=== PATIENT | male | born 1965 | race Caucasian/White ===

== ENCOUNTER 2017-06-19 13:10 | Inpatient (IN) | payer OTHER ==
[~2017-06-19] VITALS: Ht 188 cm; Wt 67.1 kg
[2017-06-19] MEDS ORDERED: IV NORMAL SALINE 1000 ML BAG IV ONE ×2 (13:30→14:45)
[2017-06-19 13:38] LABS: CARBON DIOXIDE 21 mmol/L (21-32); CHLORIDE 101 mmol/L (98-107); CREATININE 0.8 mg/dL (0.6-1.3); GLUCOSE 126 mg/dL (74-106); UREA NITROGEN, BLOOD 15 mg/dL (7-18)
[2017-06-19 13:40] LABS: POTASSIUM 2.8 mmol/L (3.5-5.1)
[2017-06-19 13:43] LABS: ACETAMINOPHEN 3.5 ug/mL (10-30); ALANINE AMINOTRANSFERASE 74 U/L (16-63); ALKALINE PHOSPHATASE 79 U/L (50-136); ASPARTATE AMINOTRANSFERASE 127 U/L (15-37); BILIRUBIN,DIRECT 0.1 mg/dL (0.0-0.2); BILIRUBIN,TOTAL 0.6 mg/dL (0.2-1.0)
[2017-06-19 13:46] LABS: BASOPHILS % (AUTO) 0.1 % (0.0-2.0); EOSINOPHILS % (AUTO) 0.1 % (0.0-7.0); HEMATOCRIT 39.7 % (36.7-47.1); HEMOGLOBIN 13.5 g/dL (12.5-16.3); LYMPHOCYTES # (AUTO) 1.3 K/uL (20.0-40.0); LYMPHOCYTES % (AUTO) 11.5 % (20.5-51.5); MEAN CORPUSCULAR HEMOGLOBIN 31.9 uug (23.8-33.4); MEAN CORPUSCULAR HGB CONC 34 g/dL (32.5-36.3); MEAN CORPUSCULAR VOLUME 93.6 fL (73.0-96.2); MONOCYTES # (AUTO) 0.8 K/uL (2.0-10.0); MONOCYTES % (AUTO) 6.7 % (0.0-11.0); NEUTROPHILS # (AUTO) 9.2 K/uL (1.8-8.9); NEUTROPHILS % (AUTO) 81.6 % (38.5-71.5); PLATELET COUNT (AUTO) 304 K/uL (152-348); RED BLOOD CELL COUNT(AUTO) 4.24 MIL/uL (4.06-5.63); WHITE BLOOD COUNT (AUTO) 11.3 K/uL (3.6-10.2)
[2017-06-19 13:47] LABS: *BILIRUBIN,URIN NEGATIVE (NEGATIVE); *BLOOD, URINE Trace-lysed (NEGATIVE); *CLARITY,URINE SLIGHTLY CLOUDY (CLEAR); *COLOR,URINE YELLOW (YELLOW); *KETONES,URINE NEGATIVE (NEGATIVE); *PROTEIN,URINE NEGATIVE (NEGATIVE); *UROBILINOGEN,URINE 0.2 E.U./dl (NORMAL); LEUKOCYTE ESTERASE ,URINE NEGATIVE (NEGATIVE); NITRITE, URINE NEGATIVE (NEGATIVE); UGLUCOSE NEGATIVE (NEGATIVE)
[2017-06-19 13:48] LABS: ETHANOL 802 MG/DL (0-0)
[2017-06-19] MEDS ORDERED: POTASSIUM CHLORIDE 100 ML ONE (13:51)
[2017-06-19] MEDS: POTASSIUM CHLORIDE 50 ML IV SCH ×2 (13:53→15:04)
[2017-06-19 13:57] LABS: BACTERIA,URINE NONE SEEN /HPF (NONE SEEN); RBC,URINE 0-3 /HPF (0-3); SQUAMOUS EPITHELIAL CELL,UR NONE SEEN /HPF (NONE SEEN); WBC,URINE 0-3 /HPF (0-3)
[2017-06-19 14:00] LABS: *AMPHETAMINE, URINE NEGATIVE (NEGATIVE); *BARBITURATE, URINE NEGATIVE (NEGATIVE); *CANNABINOID, URINE POSITIVE (NEGATIVE); *COCCAINE, URINE NEGATIVE (NEGATIVE); *OPIATE, URINE POSITIVE (NEGATIVE); *PHENCYCLIDINE SCREEN,URINE NEGATIVE (NEGATIVE)
[2017-06-19] MEDS ORDERED: THIAMINE HCL 200 MG/2 ML VIAL IM ONE (14:00)
[2017-06-19] MEDS ORDERED: THIAMINE HCL 200 MG/2 ML VIAL ONE (14:12)
--- NOTE | 2017-06-19 14:18 | NUR ---
BRUISE ON THE LEFT HIP NOTICED, ER MD AT BEDSIDE.
--- NOTE | 2017-06-19 15:05 | NUR ---
PT STARTING TO WAKE UP AND TALKING IN ONE WORDS, STILL DOES NOT REMEMBER HIS NAME. PT IS ASKING TO SMOKE.
--- NOTE | 2017-06-19 16:00 | NUR ---
PT STILL DOES NOT KNOW HIS NAME.
--- NOTE | 2017-06-19 16:05 | NUR ---
TRANSFERED PT TO CCU THOMAS STATUS IN STABLE CONDITION
--- NOTE | 2017-06-19 16:15 | NUR ---
Patient in From Emergency room awake confused restless. In CCU 4 as THOMAS overflow. Vitals as follow. HR of 114, RR 16, Saturation of 96%. sbp 96/31. patient situated in bed IV access of left hand G 20 infusing with normal saline. Gil catheter to gravity.
[2017-06-19 16:44] VITALS: BP 110/63
[2017-06-19] MEDS ORDERED: MAGNESIUM HYDROXIDE 30 ML LIQUID UDC PO PRN (17:00)
[2017-06-19] MEDS ORDERED: Z GUARD REMEDY PASTE 57 GM TUBE TOP PRN (17:00)
[2017-06-19] MEDS ORDERED: LORAZEPAM 2 MG/1 ML VIAL IV PRN ×2 (17:00→18:00)
[2017-06-19] MEDS ORDERED: ACETAMINOPHEN 325 MG TABLET PO PRN (17:00)
[2017-06-19] MEDS: IV NS 1000 ML 1,000 ML IV SCH ×2 (17:40→20:38)
--- NOTE | 2017-06-19 18:26 | NUR ---
AT this time patient more awake ate dinner and able to state his name Jayson Diez. stating his birthday is 1965. Patient also stating he has no allergies to either medications or food. Addendum: 06/19/17 at 1834 by DEIRDRE PARTIDA RN dATE OF 1965
[2017-06-19 20:00] VITALS: BP 103/55
--- NOTE | 2017-06-19 20:00 | NUR ---
RECEIVED PT. VERY DROWSY, AROUSABLE TO VERBAL STIMULI. ON RM AIR W/ O2 SAT OF 100%.IVF NS @ 100CC/HR ON L HAND. BP STABLE. AFEBRILE.C-SCOPE SR. NOT IN ANY DISTRESS.
--- NOTE | 2017-06-19 22:05 | NUR ---
HS CARE DONE. REPOSITIONED HIMSELF FOR COMFORTS.
--- NOTE | 2017-06-19 23:55 | NUR ---
MEDICATED W/ ATIVAN 1MG FOR SHAKING & AGITATION.
[2017-06-20] VITALS (18 sets, daily range): BP systolic 91–128; BP diastolic 48–70
[2017-06-20] MEDS: ONDANSETRON 4 MG/2 ML VIAL IV PRN (01:37)
--- NOTE | 2017-06-20 01:45 | NUR ---
CALLED DR RIVERA RE: INCREASE OF AGITATION & SHAKING W/ ORDER.
[2017-06-20] MEDS: LORAZEPAM 2 MG/1 ML VIAL IV PRN ×7 (02:01→16:48)
[2017-06-20] MEDS: IV NS 1000 ML 1,000 ML IV SCH ×2 (03:12→12:33)
[2017-06-20] MEDS: HYDROCODONE/APAP 5-325MG TABLET PO PRN ×3 (03:42→15:07)
[2017-06-20] MEDS ORDERED: LORAZEPAM 2 MG/1 ML VIAL IV ONE (04:00)
--- NOTE | 2017-06-20 04:00 | NUR ---
called dr rutherford for increased agitation & shaking w/ order, ativan 2mg given as ordered once.
[2017-06-20 05:07] LABS: BASOPHILS % (AUTO) 0.5 % (0.0-2.0); EOSINOPHILS % (AUTO) 0.5 % (0.0-7.0); HEMATOCRIT 34.8 % (36.7-47.1); LYMPHOCYTES # (AUTO) 1.7 K/uL (20.0-40.0); LYMPHOCYTES % (AUTO) 19.1 % (20.5-51.5); MEAN CORPUSCULAR HGB CONC 35 g/dL (32.5-36.3); MEAN CORPUSCULAR VOLUME 92.8 fL (73.0-96.2); MONOCYTES # (AUTO) 0.5 K/uL (2.0-10.0); MONOCYTES % (AUTO) 5.9 % (0.0-11.0); NEUTROPHILS # (AUTO) 6.7 K/uL (1.8-8.9); PLATELET COUNT (AUTO) 233 K/uL (152-348); RED BLOOD CELL COUNT(AUTO) 3.75 MIL/uL (4.06-5.63); WHITE BLOOD COUNT (AUTO) 9.1 K/uL (3.6-10.2)
[2017-06-20 05:27] LABS: CREATININE 0.8 mg/dL (0.6-1.3); MAGNESIUM 1.5 mg/dL (1.8-2.4); PHOSPHOROUS 2.1 mg/dL (2.5-4.9); POTASSIUM 3.4 mmol/L (3.5-5.1)
--- NOTE | 2017-06-20 06:15 | NUR ---
MEDICATED W/ ATIVAN 1MG IVP FOR AGITATION. C/O HEADACHE, MEDICATED W/ TYLENOL 650MG PO .
[2017-06-20] MEDS ORDERED: LORAZEPAM 2 MG/1 ML VIAL IV PRN (07:15)
--- NOTE | 2017-06-20 07:40 | NUR ---
Attending physician Dr. Glover in the unit to examine patient full report given. Orders received and carried.
[2017-06-20] MEDS: MULTIVITAMINS,THERAPEUTIC TABLET PO SCH (08:00)
[2017-06-20] MEDS: THIAMINE HCL 100 MG TABLET PO SCH (08:00)
[2017-06-20] MEDS: FOLIC ACID 1 MG TABLET PO SCH (08:00)
[2017-06-20] MEDS: MAGNESIUM SULFATE/D5W 100 ML IV SCH ×2 (09:01→09:53)
[2017-06-20] MEDS: POTASSIUM PHOSPHATE MM 7.5 MMOL in IV DEXTROSE 5% 100 ML IV SCH ×2 (10:59→14:25)
--- NOTE | 2017-06-20 16:29 | NUR ---
A call from Comfort Drake case management from [facility] and requested up date on pt's current condition. She also stated to maintain him as inpatient until stable enough to go back home.
[2017-06-20] MEDS: IV NS 1000 ML 1,000 ML IV PRN (23:17)
[2017-06-21] VITALS (16 sets, daily range): BP systolic 95–144; BP diastolic 42–83
--- NOTE | 2017-06-21 | NUR ---
DOWNGRADED TO TELEMETRY AND TRANSFERRED TO ROOM 221. NO SIGNIFICANT EVENTS
--- NOTE | 2017-06-21 00:05 | NUR ---
Received patient from CCU. A/O x 3. No acute distress noted but appears very anxious. TELE Sinus Rhythm Sinus Jaswinder at 59. Body assessment done, noted multiple scratches, lacerations on face, bilateral upper and lower extremities. Pictures are filed in the chart. IVF infusing on the left hand. Gil draining clear yellow urine. Safety initiated. call light within reach. Will continue to monitor.
[2017-06-21] MEDS: HYDROCODONE/APAP 5-325MG TABLET PO PRN ×3 (02:49→23:14)
[2017-06-21] MEDS ORDERED: ZIPRASIDONE MESYLATE 20 MG VIAL IM PRN (03:15)
[2017-06-21] MEDS: LORAZEPAM 2 MG/1 ML VIAL IV PRN ×6 (03:20→21:08)
--- NOTE | 2017-06-21 03:20 | NUR ---
Patient became extremely anxious and agitated, stating "give me my Ativan and the strongest one". Ativan given will continue to monitor.
[2017-06-21] MEDS: ONDANSETRON 4 MG/2 ML VIAL IV PRN (04:32)
--- NOTE | 2017-06-21 05:39 | NUR ---
Patient slept poorly. He is extremely anxious and becomes agitated. He is constantly asking for medication. He states "I need my Ativan now! Can I have my Ativan now"? TELE sinus rhythm and sinus milagros. Noted abrasions and lacerations all over his body. Gil draining yellow clear urine. Safety and comfort measures maintained t/o shift. All meds given as ordered with no adverse effects. All needs met.
[2017-06-21] MEDS ORDERED: diphenhydrAMINE 50 MG/1 ML VIAL IV PRN (06:45)
[2017-06-21] MEDS ORDERED: LORAZEPAM 2 MG/1 ML VIAL IV PRN (08:30)
[2017-06-21] MEDS ORDERED: HALOPERIDOL LACTATE 5 MG/1 ML VIAL IM ONE ×2 (08:30→09:30)
[2017-06-21] MEDS: MULTIVITAMINS,THERAPEUTIC TABLET PO SCH (09:00)
[2017-06-21] MEDS: FOLIC ACID 1 MG TABLET PO SCH (09:00)
[2017-06-21] MEDS: THIAMINE HCL 100 MG TABLET PO SCH (09:00)
[2017-06-21] MEDS: LORAZEPAM 2 MG/1 ML VIAL IM PRN ×2 (09:11→11:40)
--- NOTE | 2017-06-21 11:30 | NUR ---
transferred in from Tele floor . report received from Kelechi VERDIN. 57 yr old male was admitted on 06/19/17 for ETOH intoxication. and multiple drug abuse. back to CCU for Delirium tremens. needing more IV medications.was tele status, patient pulled monitors out and pulled iv and ferguson catheter out. Addendum: 06/21/17 at 1652 by ZANE WOLFE RN Amended: Links added.
[2017-06-21] MEDS: HALOPERIDOL LACTATE 5 MG/1 ML VIAL IM PRN (12:50)
--- NOTE | 2017-06-21 12:51 | NUR ---
patient continued to be agitated. wanting to get out of her to go to his apartment. medicated with ativan and haldol Addendum: 06/21/17 at 1308 by ZANE WOLFE RN Amended: Links added. Addendum: 06/21/17 at 1309 by ZANE WOLFE RN Amended: Links added.
[2017-06-21] MEDS: NICOTINE 21 MG/24HR PATCH TD SCH (13:40)
--- NOTE | 2017-06-21 14:15 | NUR ---
patient remains agitated, yelling, argumentative, not following directions. IV left hand was pulled out , monitoring equipments were all taken out by patient. mittens and wrist restraints applied. Addendum: 06/21/17 at 1655 by ZANE WOLFE RN Amended: Links added.
--- NOTE | 2017-06-21 14:25 | NUR ---
medicated with ativan for agitation. code gunter called Addendum: 06/21/17 at 1425 by ZANE WOLFE RN Amended: Links added.
--- NOTE | 2017-06-21 14:27 | NUR ---
WOUND CARE CONSULT: LIMITED ASSESSMENT TODAY DUE TO RECENT CODE CRUZ AND PT REFUSAL. PT ALLOWED ASSESSMENT OF RT THUMB. RECOMMENDATIONS MADE FOR WOUND CARE OF RT THUMB. DISCUSSED WITH NURSING STAFF. PT MAY BENEFIT FROM SURGICAL CONSULT. PT ABLE TO MOVE ABOUT IN BED AND AGITATED AT TIMES. WILL SEE PRN. PAYNE IN AGREEMENT WITH PLAN OF CARE.
[2017-06-21] MEDS: IV NS 1000 ML 1,000 ML IV PRN (16:37)
[2017-06-21] MEDS: BACITRACIN/POLYMYXIN B OINT 15 GM TUBE TOP SCH (17:27)
--- NOTE | 2017-06-21 17:32 | NUR ---
medicated for persistent agitation. remains on bilateral wris restraints and mittens Addendum: 06/21/17 at 1732 by ZANE WOLFE RN Amended: Links added.
--- NOTE | 2017-06-21 20:00 | NUR ---
Resting in bed. Readily becomes restless when awakens. Confused/disoriented but aware is not home. Reality-orientation explained. Bilateral soft wrist restraints and mittens in place, circ.checks adequate. Stable rhythm and VS. Denies pain/discomfort. Safety and fall precautions observed at all times. Please see CCU flowsheet for full assessment and clinical data.
--- NOTE | 2017-06-21 23:59 | NUR ---
c/o generalized pain around 2300 relieved with [place]. PO fluids tolerated well. Nursing comfort measures maintained. IV Ativan for restlessness, with relief. See EMar for administration times.
[2017-06-22] VITALS (11 sets, daily range): BP systolic 100–134; BP diastolic 48–87
[2017-06-22] MEDS: LORAZEPAM 2 MG/1 ML VIAL IV PRN ×5 (00:07→11:35)
[2017-06-22] MEDS: IV NS 1000 ML 1,000 ML IV PRN (01:57)
[2017-06-22] MEDS: HALOPERIDOL LACTATE 5 MG/1 ML VIAL IM PRN (04:27)
[2017-06-22 05:10] LABS: BASOPHILS % (AUTO) 0.3 % (0.0-2.0); EOSINOPHILS # (AUTO) 0.3 K/uL (0.0-0.7); EOSINOPHILS % (AUTO) 4.2 % (0.0-7.0); HEMATOCRIT 37.4 % (36.7-47.1); LYMPHOCYTES # (AUTO) 1.3 K/uL (20.0-40.0); LYMPHOCYTES % (AUTO) 21.3 % (20.5-51.5); MEAN CORPUSCULAR HEMOGLOBIN 32.5 uug (23.8-33.4); MEAN CORPUSCULAR HGB CONC 35 g/dL (32.5-36.3); MEAN CORPUSCULAR VOLUME 93.6 fL (73.0-96.2); MONOCYTES # (AUTO) 0.4 K/uL (2.0-10.0); MONOCYTES % (AUTO) 6.3 % (0.0-11.0); NEUTROPHILS # (AUTO) 4.2 K/uL (1.8-8.9); NEUTROPHILS % (AUTO) 67.9 % (38.5-71.5); PLATELET COUNT (AUTO) 238 K/uL (152-348); RED BLOOD CELL COUNT(AUTO) 3.99 MIL/uL (4.06-5.63); WHITE BLOOD COUNT (AUTO) 6.2 K/uL (3.6-10.2)
[2017-06-22 05:22] LABS: CREATININE 0.7 mg/dL (0.6-1.3); MAGNESIUM 1.9 mg/dL (1.8-2.4); PHOSPHOROUS 3.4 mg/dL (2.5-4.9); POTASSIUM 3.1 mmol/L (3.5-5.1)
--- NOTE | 2017-06-22 05:30 | NUR ---
Pt selectively cooperative with nursing care. Initially refused AM care but after being told gown and beddings wet of perspiration from multiple blankets requested through the night, pt cooperated. Expresses desire to go home. General condition unchanged. Stable VS and rhythm. Please see CCU flowsheet for trends and clinical data.
--- NOTE | 2017-06-22 06:30 | NUR ---
Pt woke up angry, demands to go home. Agitated, states got lost because of too much alcohol and drugs. Reality-orientation done. Safety and fall precautions observed at all times.
[2017-06-22] MEDS: FOLIC ACID 1 MG TABLET PO SCH (08:07)
[2017-06-22] MEDS: MULTIVITAMINS,THERAPEUTIC TABLET PO SCH (08:08)
[2017-06-22] MEDS: THIAMINE HCL 100 MG TABLET PO SCH (08:08)
[2017-06-22] MEDS: BACITRACIN/POLYMYXIN B OINT 15 GM TUBE TOP SCH (08:08)
[2017-06-22] MEDS: NICOTINE 21 MG/24HR PATCH TD SCH (08:49)
[2017-06-22] MEDS ORDERED: THIA100T13 PO (11:51)
[2017-06-22] MEDS ORDERED: FOLI1TAB16 PO (11:51)
--- NOTE | 2017-06-22 12:00 | NUR ---
Pt left the unit for discharge and escorted with Software Developer Consultant and security. Pt to be discharged to [facility] via taxi voucher. Left PIV removed. Gil catheter removed. Pt refusing exit care paper instructions. Right hand dressing applied by CR Patterson (read MD notes) and all discharge instructions discussed with the pt at the bedside. Pt verbalized understanding. All belongings returned to the pt. Pt refusing discharge photos to be taken. Educated pt several times, but pt continued to refuse. Pt stable and nad noted upon discharge.
== END 2017-06-22 12:00 | disposition home or self-care (01) | DRG 773 ==
LOC: EDBD → ER 13:10 → CCU 15:56 → EDBD 15:56 → UNMERGE 15:56 → MERGE 15:56 → TELE-TD 06-21 00:07 → TELE 06-21 03:43 → CCU 06-21 11:16
PROVIDERS: ADMIT Internal Medicine; ATTEND Internal Medicine
DX: F10.230 Alcohol dependence with withdrawal, uncomplicated (principal); F11.23 Opioid dependence with withdrawal; G92 Toxic encephalopathy; E44.0 Moderate protein-calorie malnutrition; E87.2 Acidosis; K70.10 Alcoholic hepatitis without ascites; E83.42 Hypomagnesemia; F10.220 Alcohol dependence with intoxication, uncomplicated; F13.230 Sedative, hypnotic or anxiolytic dependence with withdrawal, uncomplicated; Y90.8 Blood alcohol level of 240 mg/100 ml or more; Z68.1 Body mass index [BMI] 19.9 or less, adult; E87.6 Hypokalemia; D63.8 Anemia in other chronic diseases classified elsewhere; D75.89 Other specified diseases of blood and blood-forming organs; F17.200 Nicotine dependence, unspecified, uncomplicated; E83.39 Other disorders of phosphorus metabolism
CPT/HCPCS: 36415; 70030-TC; 70450; 71045; 80307; 83605; 83735; 84100; 85025; 85730; 87086; 93005; A4663; G0480; G0480-TC; J1200; J1630; J2060; J2405; J3411; J3475; J3480; J3490; J7030; J7060

== ENCOUNTER → 2017-07-02 | Emergency (ER) | payer OTHER ==
[~2017-07-02] VITALS: Ht 167.6 cm; Wt 72.1 kg
[~2017-07-02] MED LIST: ACETAMINOPHEN 325 MG TABLET PO PRN; ALBUTEROL SULFATE 2.5 MG/ 0.5 ML NEBU NEB ONE; ALBUTEROL SULFATE 2.5 MG/ 0.5 ML NEBU ONE; ALBUTEROL SULFATE 2.5 MG/3 ML NEBU NEB PRN; CEFTRIAXONE 1 G VIAL ONE; CEFTRIAXONE 1 G in IV DEXTROSE 5% 50 ML IV ONE; FOLI1TAB16 PO; FOLIC ACID 1 MG TABLET PO SCH; HALOPERIDOL LACTATE 5 MG/1 ML VIAL IM PRN; IPRATROPIUM BROMIDE 0.5 MG/2.5 ML NEBU NEB ONE; IPRATROPIUM BROMIDE 0.5 MG/2.5 ML NEBU ONE; IV 1/2NS 1000 ML 1,000 ML IV PRN; IV NS 1000 ML 1,000 ML IV ONE; IV NS 1000 ML 1,000 ML IV PRN; LEVOFLOXACIN 500 MG/D5W 500 MG in PREMIXED 1 EACH IV SCH; MAGNESIUM OXIDE 400 MG TABLET PO ONE; MULTIVITAMINS,THERAPEUTIC TABLET PO SCH; ONDANSETRON 4 MG/2 ML VIAL IV PRN; THIA100T13 PO; THIAMINE HCL 100 MG TABLET PO SCH
--- NOTE | 2017-07-02 12:01 | NUR ---
PT IS IN ROOM #1B. DR POWELL EVALUATED THE PT.
[2017-07-02 12:25] LABS: CARBON DIOXIDE 26 mmol/L (21-32); CHLORIDE 107 mmol/L (98-107); CREATININE 0.6 mg/dL (0.6-1.3); GLUCOSE 125 mg/dL (74-106); POTASSIUM 3.6 mmol/L (3.5-5.1); UREA NITROGEN, BLOOD 6 mg/dL (7-18)
[2017-07-02 12:26] LABS: EOSINOPHILS # (AUTO) 0.2 K/uL (0.0-0.7); HEMOGLOBIN 12.2 g/dL (12.5-16.3); MEAN CORPUSCULAR VOLUME 91.3 fL (73.0-96.2); WHITE BLOOD COUNT (AUTO) 6.8 K/uL (3.6-10.2)
[2017-07-02 12:31] LABS: ALANINE AMINOTRANSFERASE 25 U/L (16-63); ALKALINE PHOSPHATASE 123 U/L (50-136); ASPARTATE AMINOTRANSFERASE 31 U/L (15-37); BILIRUBIN,TOTAL 0.3 mg/dL (0.2-1.0); CREATINE KINASE, TOTAL 115 U/L (39-308); TOTAL PROTEIN, SERUM 6.3 g/dL (6.4-8.2)
[2017-07-02 12:41] LABS: BASOPHILS # (AUTO) 0.1 K/uL (0.0-8.0); EOSINOPHILS % (AUTO) 2.7 % (0.0-7.0); HEMATOCRIT 36.1 % (36.7-47.1); LYMPHOCYTES # (AUTO) 2.3 K/uL (20.0-40.0); LYMPHOCYTES % (AUTO) 34.6 % (20.5-51.5); MEAN CORPUSCULAR HEMOGLOBIN 30.9 uug (23.8-33.4); MEAN CORPUSCULAR HGB CONC 34 g/dL (32.5-36.3); MONOCYTES # (AUTO) 0.7 K/uL (2.0-10.0); MONOCYTES % (AUTO) 9.7 % (0.0-11.0); NEUTROPHILS # (AUTO) 3.5 K/uL (1.8-8.9); RED BLOOD CELL COUNT(AUTO) 3.96 MIL/uL (4.06-5.63)
[2017-07-02 12:42] LABS: ETHANOL 370 MG/DL (0-0); PLATELET COUNT (AUTO) 302 K/uL (152-348)
--- NOTE | 2017-07-02 14:29 | NUR ---
REWPORT WAS GIVEN TO IT SOFTWARE ENGINEER . PT WAS TRANSFERED TO ROOM #212.
--- NOTE | 2017-07-02 14:50 | NUR ---
Received patient from ER. Patient is asleep, arousable, in no distress. Patient admitted to tele under the care of Dr. Pineda. Dx: PNA, ETOH, LOC. Belonging list done, admission process and care plan initiated. Safety measures in place, bed alarm on. 1:1 sitter provided. Notified MD for new admission orders.
[2017-07-02 15:25] VITALS: BP 113/68
--- NOTE | 2017-07-02 17:00 | NUR ---
Patient woke up, alert, in no distress.
--- NOTE | 2017-07-02 17:10 | NUR ---
Patient is wide awake and alert. Patient is disoriented/confused, unable to state date of , month/day/year, time. Patient repeatedly asking for "scrambled eggs, breakfast". Patient stated also "I have to leave" and "call a yellow taxi".
--- NOTE | 2017-07-02 18:10 | NUR ---
Patient frequently asks for food, repetitive statements.
[2017-07-02] MEDS: LORAZEPAM 2 MG/1 ML VIAL IV PRN ×2 (18:19→22:07)
--- NOTE | 2017-07-02 18:25 | NUR ---
Patient starting to get agitated, administered ativan as ordered. will continue to monitor.
--- NOTE | 2017-07-02 18:30 | NUR ---
Patient on tele sinus rhythm
[2017-07-02 19:43] VITALS: BP 97/63
[2017-07-02] MEDS: METRONIDAZOLE 500 MG/NS 100ML 500 MG in PREMIXED 1 EACH IV SCH (21:31)
[2017-07-02 23:43] VITALS: BP 112/64
[2017-07-03] MEDS: LORAZEPAM 2 MG/1 ML VIAL IV PRN ×4 (02:05→16:23)
[2017-07-03] MEDS: METRONIDAZOLE 500 MG/NS 100ML 500 MG in PREMIXED 1 EACH IV SCH ×2 (06:02→14:46)
[2017-07-03 06:30] LABS: BASOPHILS # (AUTO) 0.1 K/uL (0.0-8.0); BASOPHILS % (AUTO) 0.8 % (0.0-2.0); EOSINOPHILS # (AUTO) 0.2 K/uL (0.0-0.7); EOSINOPHILS % (AUTO) 2.7 % (0.0-7.0); HEMATOCRIT 36.2 % (36.7-47.1); HEMOGLOBIN 12.2 g/dL (12.5-16.3); LYMPHOCYTES # (AUTO) 2.1 K/uL (20.0-40.0); MEAN CORPUSCULAR HEMOGLOBIN 30.7 uug (23.8-33.4); MEAN CORPUSCULAR HGB CONC 34 g/dL (32.5-36.3); MONOCYTES # (AUTO) 0.8 K/uL (2.0-10.0); MONOCYTES % (AUTO) 10.2 % (0.0-11.0); NEUTROPHILS # (AUTO) 4.6 K/uL (1.8-8.9); NEUTROPHILS % (AUTO) 59.3 % (38.5-71.5); PLATELET COUNT (AUTO) 265 K/uL (152-348); RED BLOOD CELL COUNT(AUTO) 3.98 MIL/uL (4.06-5.63); WHITE BLOOD COUNT (AUTO) 7.7 K/uL (3.6-10.2)
[2017-07-03 06:38] VITALS: BP 138/89
[2017-07-03 07:54] VITALS: BP 139/85
[2017-07-03 08:51] LABS: BILIRUBIN,TOTAL 0.7 mg/dL (0.2-1.0); CREATININE 0.7 mg/dL (0.6-1.3); MAGNESIUM 1.7 mg/dL (1.8-2.4); PHOSPHOROUS 4.5 mg/dL (2.5-4.9); POTASSIUM 4.1 mmol/L (3.5-5.1)
--- NOTE | 2017-07-03 09:38 | NUR ---
Patient is alert but disoriented, does not know his name or birthdate or where he is. Insists his name is "Yanick." Has been talking on the telephone with someone he states is his . However, I think he is talking to no actual person on the phone. Sitter at bedside at all times. Patient has taken off his gown multiple times and laid there naked and asking for breakfast many times. Offered juice and snacks and told him he'd have to wait until the morning for real breakfast. Patient did not attempt to get out of bed, but did attempt to pull out IV line and threatened to do so. I held the IVF for a few hours until patient calmed down and resumed fluids. PRN Ativan administered and effective. Patient slept for 2 hours last night. Vital signs stable throughout the night, denies pain or discomfort.
--- NOTE | 2017-07-03 12:00 | NUR ---
Bedside report from third shift lieutenant r.n. patient sitting at bedside restless agitated, disoriented, speech clear. on room air, saturation within desired limits. One to one sitter at bedside, patient attempting to leave room AMA unsteady gait, and confused and attempting to forcefully removed IV access. Patient oriented, and medicated as ordered.
--- NOTE | 2017-07-03 15:00 | NUR ---
Unable to obtain answers from patient as patient is very drowsy/lethargic. Will assess and continue to monitor. Addendum: 07/03/17 at 1728 by JACOBO HERNANDEZ RN Correction: dated 07/02/17 at 1500
[2017-07-04 00:11] VITALS: BP 125/68
[2017-07-04 04:00] VITALS: BP 126/88
== END | disposition left against medical advice (07) ==
LOC: EDBD → UNMERGE 11:36 → ER 11:36 → EDBD 14:38 → TELE 14:38 → INTOOBSV 14:38 → MERGE 14:38 → OBSVTOIN 14:38 → EDBD 14:38 → UNDOADMOB 14:38
DX: Z75.3 Unavailability and inaccessibility of health-care facilities (principal)
CPT/HCPCS: 36415; 70030-TC; 70450; 71045; 83690; 83735; 84100; 85025; 87040; 93005; A4663; G0480; J0696; J1630; J1956; J2060; J3490; J3590; J7030